=== PATIENT | female | born 2000 | race Caucasian/White ===

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

== ENCOUNTER 2018-12-10 23:12 | Emergency (ER) | payer SELFPAY ==
[~2018-12-10] VITALS: Ht 157.5 cm; Wt 75.4 kg
[~2018-12-10 23:12] MED LIST: CEPHALEXIN500 M1 PO
[2018-12-10 23:15] VITALS: TEMP 97.3
[2018-12-10 23:30] LABS: COLLECTION METHOD CLEAN CATCH
[2018-12-10 23:40] LABS: PH 7 (5-8); SQUAMOUS EPITHELIAL 0-2 /hpf; URINE APPEARANCE Cloudy; URINE BACTERIA None Seen /hpf; URINE BILIRUBIN Negative (NEGATIVE); URINE BLOOD 3+ (NEGATIVE); URINE CALCIUM OXALATE CRYSTAL Present /hpf; URINE COLOR Yellow; URINE GLUCOSE Negative (NEGATIVE); URINE KETONE Trace (NEGATIVE); URINE LEUKOCYTE ESTERASE 2+ (NEGATIVE); URINE NITRATE Negative (NEGATIVE); URINE PROTEIN(semi-quant) 3+ (NEGATIVE); URINE RBC >50 /hpf
[2018-12-10 23:48] LABS: BASO # 0.1 (0.0-0.2); BASO % 0.7 % (0.0-2.0); EOS # 0.4 (0.0-0.7); EOS % 2.9 % (0-4.0); GRAN # 9.3 (1.4-6.5); GRAN % 76.2 % (42.2-75.2); HEMATOCRIT 42.4 % (35.0-45.0); LYMPH # 1.5 (1.2-3.4); LYMPH % 12.3 % (20.0-51.0); MEAN CELL VOLUME 86 fl (80.0-95.0); MEAN CORPUSCULAR HEMOGLOBIN 28 pg (26.0-32.0); MEAN CORPUSCULAR HGB CONC 33 g/dl (33.0-37.0); MEAN PLATELET VOLUME 9.6 fl (7.4-10.4); MONO # 0.9 (0.1-0.6); MONO % 7.5 % (1.7-9.3); PLATELET COUNT 259 K/mm3 (130-400); RED BLOOD COUNT 4.96 M/mm3 (4.10-5.30); REDCELL DISTRIBUTION WIDTH-CV 13.1 % (11.5-14.5)
[2018-12-11 00:01] LABS: ALBUMIN 4.4 gm/dL (3.5-5.0); BILIRUBIN,TOTAL 0.3 mg/dL (0.0-1.0); C-REACTIVE PROTEIN 1.4 mg/dL (0.0-0.9); CALCIUM 9.4 mg/dL (8.4-10.2); CREATININE, serum 0.57 (0.52-1.25); POTASSIUM 3.7 mmol/L (3.4-5.0); TOTAL PROTEIN 7.9 gm/dL (6.4-8.2)
[2018-12-11] MEDS ORDERED: CEFTIN 250250 MG/TAB PO (02:09)
[2018-12-11] MEDS ORDERED: ZOFRAN ODT4 MG PO (02:09)
[2018-12-11] MEDS ORDERED: NORCO 325 MG-51 TAB PO (02:10)
[2018-12-11 02:26] VITALS: BP 116/75; PULSE 96
== END 2018-12-11 02:30 | disposition home or self-care (01) ==
LOC: COL.ER 23:12
PROVIDERS: Nurse Practitioner
DX: N39.0 Urinary tract infection, site not specified (principal); F17.210 Nicotine dependence, cigarettes, uncomplicated
CPT/HCPCS: A4216; J0696; J1170; J1885; J2405; J7030; Q9967

== ENCOUNTER 2019-09-26 21:58 | Emergency (ER) | payer SELFPAY ==
[~2019-09-26] VITALS: Ht 157.5 cm; Wt 73.6 kg
[~2019-09-26 21:58] MED LIST changes: +CEFTIN 250250 MG/TAB PO; +NORCO 325 MG-51 TAB PO; +ZOFRAN ODT4 MG PO
[2019-09-26 22:05] VITALS: TEMP 98.6
[2019-09-26 22:57] VITALS: PULSE 97
== END 2019-09-26 22:57 | disposition home or self-care (01) ==
LOC: COL.ER 21:58
DX: M79.672 Pain in left foot (principal); F17.210 Nicotine dependence, cigarettes, uncomplicated

== ENCOUNTER 2021-03-14 01:14 | Emergency (ER) | payer SELFPAY ==
[~2021-03-14] VITALS: Ht 157.5 cm; Wt 68.2 kg
[2021-03-14 01:35] VITALS: TEMP 99.2
[2021-03-14 01:59] LABS: STREP SCREEN POSITIVE
[2021-03-14] MEDS ORDERED: AMOXICILLIN 50500 MG PO (02:11)
[2021-03-14 03:00] VITALS: BP 128/70; PULSE 76
== END 2021-03-14 03:00 | disposition home or self-care (01) ==
LOC: COL.ER 01:14
PROVIDERS: Emergency Medicine
DX: J02.0 Streptococcal pharyngitis (principal); F17.210 Nicotine dependence, cigarettes, uncomplicated
CPT/HCPCS: J1100